=== PATIENT | female | born 1970 | race African-American/Black ===

== ENCOUNTER → 2024-09-15 14:37 | Outpatient (BNVA) | payer OTHER, SELFPAY | PROVIDERS: Visit Provider Physician Assistant | DX: S67.195A Crushing injury of left ring finger, initial encounter (principal); S67.193A Crushing injury of left middle finger, initial encounter; W31.9XXA Contact with unspecified machinery, initial encounter | CPT/HCPCS: 73140; 99204 ==

== ENCOUNTER → 2024-09-19 13:02 | Outpatient (BNVA) | payer OTHER, SELFPAY | PROVIDERS: Visit Provider Physician Assistant Medical | DX: S67.193A Crushing injury of left middle finger, initial encounter (principal); S67.195A Crushing injury of left ring finger, initial encounter; W31.9XXD Contact with unspecified machinery, subsequent encounter | CPT/HCPCS: 99213 ==

== ENCOUNTER → 2024-09-30 15:22 | Outpatient (BNVA) | payer OTHER, SELFPAY | PROVIDERS: Visit Provider Physician Assistant Medical | DX: S67.195A Crushing injury of left ring finger, initial encounter (principal); S67.193A Crushing injury of left middle finger, initial encounter; W31.9XXA Contact with unspecified machinery, initial encounter; Z02.79 Encounter for issue of other medical certificate | CPT/HCPCS: 99213 ==